=== PATIENT | female | born 1975 | race Two or more races ===

== ENCOUNTER 2021-07-02 16:13 | Emergency (ER) | payer MEDICAID ==
[~2021-07-02] VITALS: Ht 160 cm; Wt 67.0 kg
[2021-07-02] MEDS ORDERED: ACETAMINOPHEN 325MG TABLET PO STA (16:59)
[2021-07-02] MEDS ORDERED: SODIUM CHLORIDE 0.9% 1,000 ML IV ONE (17:00)
[2021-07-02] MEDS ORDERED: KETOROLAC 30MG/ML VIAL IV ONE (19:15)
[2021-07-02] MEDS ORDERED: IOHEXOL-350 100 ML BOTTLE ONE (19:42)
[2021-07-02 19:43] VITALS: BP 108/43
[2021-07-02 20:26] LABS: BASOPHILS % 0.3 % (0.0-2.0); HEMATOCRIT. 35.3 % (36.0-48.0); HEMOGLOBIN. 11.5 g/dL (12.0-16.0); LYMPHOCYTES % 45.2 % (20.0-50.0); MEAN CORPUSCULAR VOLUME 83.1 fL (81.0-99.0); MEAN PLATELET VOLUME 9.5 fl (7.4-10.4); MONOCYTES % 8.8 % (2.0-8.0); NEUTROPHILS % 44.7 % (40.0-76.0); PLATELET 202 x1000/uL (130-400); RED BLOOD CELL COUNT 4.26 mill/uL (4.2-5.4); RED CELL DISTRIBUTION WIDTH 14.4 % (11.6-14.6)
[2021-07-02 20:34] LABS: CHLORIDE 108 mEq/L (98-107)
[2021-07-02 20:40] LABS: PHOSPHORUS 3.1 mg/dL (2.5-4.9)
[2021-07-02] MEDS ORDERED: IBUP-2028 MT (20:59)
[2021-07-02 21:06] LABS: HCG SCREEN NEGATIVE
[2021-07-02 21:19] LABS: PROTHROMBIN TIME 10.4 sec (9.6-11.0)
== END 2021-07-02 21:17 | disposition home or self-care (01) ==
LOC: ER 16:13
DX: R51.9 Headache, unspecified (principal); H53.8 Other visual disturbances; Z98.890 Other specified postprocedural states
CPT/HCPCS: 36415; 70496; 70498; 80053; 83735; 84100; 84703; 85025; 85610; 96361; 96374; 99284; J1885; J7030; Q9967